=== PATIENT | male | born 1955 | race Caucasian/White ===

== ENCOUNTER 2018-01-15 17:50 | Emergency (ER) | payer OTHER ==
[2018-01-15 17:56] VITALS: RESP 16
[2018-01-15] MEDS ORDERED: cloNIDine HCL 0.2 MG TAB PO STA (18:18)
--- NOTE | 2018-01-15 18:31 | ED ---
General Adult HPI - General Chief complaint: Headache Stated complaint: headache, hyoertension Time Seen by Provider: 01/15/18 17:59 Source: patient, RN notes reviewed Mode of arrival: ambulatory Limitations: no limitations - History of Present Illness Initial comments: Chief complaint history of present illness this is a 62-year-old male here with complaint of elevated blood pressure for the past 3 weeks. The patient had proximal one week ago been started on lisinopril 20 mg with HCTZ. He discussed this with his doctor who suggested that was blood pressures elevated he can double the lisinopril to make a 40 mg. Also takes atenolol 50 mg, daily. Patient reports she has a headache with or without elevated blood pressure. He gets up early in the morning at 4 to go to work. She been monitoring his blood pressure with a cuff at home. It appears as though it stays between 150 and 180. Been higher measurements per patient. No neural deficits. - Related Data Home Medications Medication Instructions Recorded Confirmed Aspirin EC [Ecotrin Low Dose] 81 mg PO DAILY 01/15/18 01/15/18 Atenolol [Tenormin] 50 mg PO DAILY 01/15/18 01/15/18 Atorvastatin [Lipitor] 40 mg PO DAILY 01/15/18 01/15/18 Gemfibrozil [Lopid] 600 mg PO AC-BID 01/15/18 01/15/18 Lisinopril-Hctz 20-25 mg 1 tab PO DAILY 01/15/18 01/15/18 [Zestoretic 20-25] Multivitamins, Thera [Multivitamin 1 tab PO DAILY 01/15/18 01/15/18 (formulary)] Frannie-3 Fatty Acids/Fish Oil [Fish 1 cap PO DAILY 01/15/18 01/15/18 Oil 1,000 mg Softgel] Allergies Allergy/AdvReac Type Severity Reaction Status Date / Time No Known Allergies Allergy Verified 01/15/18 18:02 Review of Systems ROS Statement: Those systems with pertinent positive or pertinent negative responses have been documented in the HPI. Review of systems. Occasional headache. No visual acuity changes. No stiff neck. No chest pain shortness breath palpitations no neuro deficits. All systems are reviewed. Past medical problems significant for hypertension. Surgeries right carotid. He's had 2 surgeries on his knee because of a meniscus tear. Patient's family history includes lupus and Parkinson's. Patient has no ALLERGIES. He does smoke strongly encouraged stop denies alcohol use. ROS Other: All systems not noted in ROS Statement are negative. Past Medical History Past Medical History: Hypertension History of Any Multi-Drug Resistant Organisms: None Reported Past Surgical History: Orthopedic Surgery Additional Past Surgical History / Comment(s): carotid artery surgery Past Psychological History: No Psychological Hx Reported Smoking Status: Current every day smoker Past Alcohol Use History: None Reported Past Drug Use History: None Reported General Exam - General Exam Comments Initial Comments: General: The patient is awake and alert, here because of on again off again headaches and elevated blood pressure. in no distress, and does not appear acutely ill. Current vital signs shows temperature 97.9 pulse 82 respiratory rate 16 pulse ox 90% room air blood pressure 159/70. Eye: Pupils are equal, round and reactive to light, extra-ocular movements are intact ; there is normal conjunctiva bilaterally. No signs of icterus. Ears, nose, mouth and throat: There are moist mucous membranes and no oral lesions. Neck: The neck is supple, there is no tenderness, no anterior cervical lymphadenopathy. No carotid bruit. Cardiovascular: There is a regular rate and rhythm. Faint systolic murmur. Respiratory: Lungs are clear to auscultation, respirations are non-labored, breath sounds are equal. No wheezes, stridor, rales, or rhonchi. Gastrointestinal: Soft, non-distended, non-tender abdomen without masses or organomegaly noted. There is no rebound or guarding present. No CVA tenderness. Bowel sounds are unremarkable. Back: No back pain Musculoskeletal: Normal ROM, no tenderness, slight, mild pitting edema. There is no calf tenderness or swelling. Sensation intact. Pulses equal bilaterally 2+. Neurological: CN II-XII intact, There are no obvious motor or sensory deficits. Coordination appears grossly intact. Speech is normal. No focal or lateralizing findings Skin: Skin is warm and dry and no rashes or lesions are noted. Limitations: no limitations Course Vital Signs 01/15/18 01/15/18 01/15/18 17:53 18:33 19:51 Temperature 97.9 F 99.0 F Pulse Rate 82 65 Respiratory 16 16 Rate Blood Pressure 159/70 146/69 134/63 O2 Sat by Pulse 98 96 Oximetry Medical Decision Making - Medical Decision Making Neurological the patient remains intact. The patient was given Catapres 0.2 by mouth. Patient be advised to make sure that his blood pressure cuff is measuring accurately. Also advised that he can double his atenolol to 100 mg on occasion when his blood pressure is elevated and he has a headache. Advised to call talk to his boiler setter. Alteration relative to dose, frequency, change in medications as setter should be discussed. Patient will be given a prescription of Fioricet for headache. The patient's feeling better now. Blood pressure 134/63 after receiving Catapres 0.2. The patient was advised to continue with lisinopril 40 on occasion of his blood pressures elevated the morning and also he can increases atenolol to 2 tablets. Otherwise advised to call and speak to his family physician and boiler setter about alteration of medication as needed. Patient advised to make sure his low pressure cuff has been standardized. He was welcome to bring the blood pressure cuff back here to check it and calibrated against one of our machines. Disposition Clinical Impression: Essential hypertension Disposition: HOME SELF-CARE Condition: Fair Instructions: Hypertension (ED) Additional Instructions: Follow your boiler setter directions. Use Tylenol or ibuprofen for headache as well as taking an extra lisinopril or atenolol. Call your family physician or boiler setter for further evaluation and management of blood pressure return emergency room as needed Referrals: Oliver Hancock DO [Primary Care Provider] - 1-2 days Time of Disposition: 20:34
[2018-01-15 20:47] VITALS: BP 114/53; PULSE 76; TEMP 98.3
== END 2018-01-15 20:47 | disposition home or self-care (01) ==
LOC: EC 17:50
DX: I10 Essential (primary) hypertension (principal); R51 Headache; R60.0 Localized edema; F17.200 Nicotine dependence, unspecified, uncomplicated; Z79.82 Long term (current) use of aspirin; Z79.899 Other long term (current) drug therapy; Z98.890 Other specified postprocedural states
CPT/HCPCS: 99283

== ENCOUNTER → 2018-01-26 | Outpatient (CLI) | payer OTHER ==
[2018-01-26 08:00] LABS: HCT 39.6 % (39.0-53.0); HGB 12.9 gm/dL (13.0-17.5); MCH 29.7 pg (25.0-35.0); MCHC 32.4 g/dL (31.0-37.0); MCV 91.6 fL (80.0-100.0); Mean Platelet Volume 8.2; Platelet Count 228 k/uL (150-450); RBC 4.32 m/uL (4.30-5.90); RDW 12.6 % (11.5-15.5); WBC 8.9 k/uL (3.8-10.6)
[2018-01-26 08:19] LABS: ALT 38 U/L (21-72); AST 21 U/L (17-59); Albumin 4.1 g/dL (3.5-5.0); Alkaline Phosphatase 88 U/L (38-126); Anion Gap 13 mmol/L; Blood Urea Nitrogen 20 mg/dL (9-20); Calcium 9.5 mg/dL (8.4-10.2); Carbon Dioxide 26 mmol/L (22-30); Chloride 104 mmol/L (98-107); Cholesterol 98 mg/dL (<200); Glucose 101 mg/dL (74-99); HDL Cholesterol 28 mg/dL (40-60); LDL Cholesterol,Calculated 51 mg/dL (0-99); Potassium 3.9 mmol/L (3.5-5.1); Sodium 143 mmol/L (137-145); Total Bilirubin 0.4 mg/dL (0.2-1.3); Total Protein 6.9 g/dL (6.3-8.2); Triglycerides 93 mg/dL (<150)
[2018-01-26 12:57] LABS: Hemoglobin A1C 6.5 % (4.0-6.0)
== END | disposition home or self-care (01) ==
LOC: LABWHC1 07:07
DX: E78.2 Mixed hyperlipidemia (principal); I65.23 Occlusion and stenosis of bilateral carotid arteries; I10 Essential (primary) hypertension
CPT/HCPCS: 36415; 80053; 80061; 83036; 84443; 85027